=== PATIENT | female | born 2000 | race African-American/Black ===

== ENCOUNTER 2024-01-05 15:23 | Emergency (ER) | payer MEDICAID, OTHER ==
[~2024-01-05] VITALS: Ht 167.6 cm; Wt 77.0 kg
[2024-01-05 15:31] VITALS: O2SAT 100
[2024-01-05 16:16] LABS: CHLORIDE 105 mEq/L (98-107); POTASSIUM 3.2 mEq/L (3.5-5.1); SODIUM 138 mEq/L (136-145)
[2024-01-05 16:17] LABS: CALCIUM 9.1 mg/dL (8.7-10.4); CARBON DIOXIDE 25 mEq/L (21-32)
[2024-01-05 16:20] LABS: BASOPHILS % 0.4 % (0.0-2.0); EOSINOPHILS % 0.8 % (0.0-5.0); HEMATOCRIT. 41.2 % (36.0-48.0); HEMOGLOBIN. 13.1 g/dL (12.0-16.0); LYMPHOCYTES % 15.8 % (20.0-50.0); MEAN CORPUSCULAR HEMOGLOBIN 25.9 pg (28.0-32.0); MEAN CORPUSCULAR HGB CONC 31.8 g/dL (31.0-37.0); MEAN CORPUSCULAR VOLUME 81.3 fL (81.0-99.0); MEAN PLATELET VOLUME 9.1 fl (7.4-10.4); MONOCYTES % 4.3 % (2.0-8.0); NEUTROPHILS % 78.7 % (40.0-76.0); PLATELET 335 x1000/uL (130-400); RED BLOOD CELL COUNT 5.06 mill/uL (4.2-5.4); RED CELL DISTRIBUTION WIDTH 14.6 % (11.6-14.6); WHITE BLOOD COUNT 15.9 x1000/uL (4.5-11.0)
[2024-01-05 16:22] LABS: CREATININE 0.7 mg/dL (0.6-1.0); GLUCOSE 115 mg/dL (70-105); UREA NITROGEN BLOOD 6 mg/dL (9-23)
[2024-01-05 16:23] LABS: ETHANOL BLOOD < 10 mg/dL (<10)
[2024-01-05 17:01] LABS: CLARITY URINE CLEAR (CLEAR); COLOR URINE YELLOW (YELLOW); GLUCOSE URINE NEGATIVE (NEGATIVE); KETONES URINE NEGATIVE (NEGATIVE); LEUKOCYTE ESTERASE URINE 1+ (NEGATIVE); NITRITE URINE NEGATIVE (NEGATIVE); OCCULT BLOOD URINE 1+ (NEGATIVE); PROTEIN URINE NEGATIVE (NEGATIVE); SPECIFIC GRAVITY URINE 1.004 (1.005-1.030); UROBILINOGEN URINE 0.2 E.U./dL (0.2-1.0)
[2024-01-05 17:27] LABS: UCG KIT LOT# 819946; UCG SCREEN NEGATIVE
[2024-01-05 17:29] LABS: BACTERIA URINE 1+
[2024-01-05 17:30] LABS: SQUAMOUS EPITHELIAL CELL URINE 1+ /lpf (RARE/1+); YEAST URINE RARE
[2024-01-05] MEDS: POTASSIUM CHLORIDE 20MEQ/PACKET PO ONE (18:34)
[2024-01-05 19:51] LABS: *AMPHETAMINES SCREEN URINE NEGATIVE (NEGATIVE); *BARBITURATES SCREEN URINE NEGATIVE (NEGATIVE); *BENZODIAZEPINES SCREEN URINE NEGATIVE (NEGATIVE); *COCAINE SCREEN URINE NEGATIVE (NEGATIVE); CANNABINOID URINE SCREEN NEGATIVE (NEGATIVE); ECSTASY MDMA SCREEN URINE NEGATIVE (NEGATIVE); METHADONE URINE SCREEN NEGATIVE (NEGATIVE); OPIATES URINE SCREEN NEGATIVE (NEGATIVE); PHENCYCLIDINE URINE SCREEN NEGATIVE (NEGATIVE)
[2024-01-05] MEDS: NITROFURANTOIN 100MG M/M CAPSULE PO SCH (22:11)
[2024-01-06] MEDS: SERTRALINE HCL 25MG TABLET PO SCH (17:35)
[2024-01-07 10:44] VITALS: BP 113/68; PULSE 72; RESP 18; TEMP 98.2
== END 2024-01-07 14:18 | disposition home or self-care (01) ==
LOC: ER 15:23
DX: R45.851 Suicidal ideations (principal); N30.00 Acute cystitis without hematuria; E87.6 Hypokalemia; Z20.822 Contact with and (suspected) exposure to COVID-19
CPT/HCPCS: 36415; 80048; 80305; 80320; 81003; 81025; 85025; 87426; 99285; G0480